=== PATIENT | male | born 1970 | race Caucasian/White ===

== ENCOUNTER 2020-12-27 07:45 | Emergency (ER) | payer MEDICAID ==
[~2020-12-27] VITALS: Ht 172.7 cm; Wt 74.8 kg
[2020-12-27 08:04] VITALS: BP 143/87
[2020-12-27] MEDS ORDERED: cefTRIAXone SOD 1,000 MG VL IM ONE (08:15)
[2020-12-27] MEDS ORDERED: methylPREDNISolone SOD SUCC 125 MG/2 ML VL IM ONE (08:15)
[2020-12-27] MEDS ORDERED: diphenhdrAMINE HCL 50 MG/1 ML VL IM ONE (08:15)
[2020-12-27] MEDS ORDERED: ACETAMINOPHEN 325 MG TAB PO ONE (08:45)
== END 2020-12-27 08:56 | disposition home or self-care (01) ==
LOC: ER 07:45
DX: L30.9 Dermatitis, unspecified (principal); I10 Essential (primary) hypertension; J45.909 Unspecified asthma, uncomplicated; F17.210 Nicotine dependence, cigarettes, uncomplicated; F12.10 Cannabis abuse, uncomplicated
CPT/HCPCS: 96372; 99284; J0696; J1200; J2930

== ENCOUNTER 2021-10-14 17:19 | Emergency (ER) | payer MEDICAID ==
[~2021-10-14] VITALS: Ht 172.7 cm; Wt 74.8 kg
[2021-10-14] MEDS ORDERED: cloNIDine HCL 0.1 MG TAB ONE (17:31)
[2021-10-14 17:33] VITALS: BP 146/104
[2021-10-14] MEDS ORDERED: cloNIDine HCL 0.1 MG TAB PO ONE (17:45)
== END 2021-10-14 18:39 | disposition home or self-care (01) ==
LOC: ER 17:19
DX: I10 Essential (primary) hypertension (principal); J45.909 Unspecified asthma, uncomplicated; F17.210 Nicotine dependence, cigarettes, uncomplicated; F12.10 Cannabis abuse, uncomplicated

== ENCOUNTER 2022-05-19 16:02 | Emergency (ER) | payer MEDICAID ==
[~2022-05-19] VITALS: Ht 172.7 cm; Wt 80.0 kg
[2022-05-19] MEDS ORDERED: methylPREDNISolone SOD SUCC 125 MG/2 ML VL IM ONE (20:30)
[2022-05-19] MEDS ORDERED: METH4PAK PO (20:36)
[2022-05-19 20:53] VITALS: BP 139/84
== END 2022-05-19 21:21 | disposition home or self-care (01) ==
LOC: ER 16:02
DX: L30.9 Dermatitis, unspecified (principal); I10 Essential (primary) hypertension; J45.909 Unspecified asthma, uncomplicated; F17.210 Nicotine dependence, cigarettes, uncomplicated
CPT/HCPCS: 96372; 99283; J2930